=== PATIENT | male | born 1960 | race Asian ===

== ENCOUNTER 2020-06-17 10:52 | Emergency (ER) | payer BC, MEDICARE ==
[~2020-06-17] VITALS: Ht 170.2 cm; Wt 78.2 kg
[2020-06-17] MEDS ORDERED: HYDR-3965 PO (13:27)
[2020-06-17 14:15] VITALS: BP 137/75
== END 2020-06-17 14:18 | disposition home or self-care (01) ==
LOC: ER 10:53
DX: S00.03XA Contusion of scalp, initial encounter (principal); M79.631 Pain in right forearm; H53.9 Unspecified visual disturbance; W11.XXXA Fall on and from ladder, initial encounter; Y93.89 Activity, other specified; Y92.89 Other specified places as the place of occurrence of the external cause; Y99.8 Other external cause status
CPT/HCPCS: 70450; 72125; 99285